=== PATIENT | female | born 1955 | race Two or more races ===

== ENCOUNTER 2025-04-06 15:04 | Emergency (ER) | payer OTHER ==
[~2025-04-06] VITALS: Ht 170.2 cm; Wt 77.1 kg
[2025-04-06] MEDS ORDERED: COZAAR50 MG (16:08)
[2025-04-06] MEDS ORDERED: CLINDAMYCIN PHOSPHATE 150 MG/ML (300mg) IM STA (19:11)
[2025-04-06] MEDS ORDERED: CLINDAMYCIN PHOSPHATE 150 MG/ML (300mg) ONE (19:21)
[2025-04-06 20:01] LABS: BASO % 0.7 % (0.1-1.2); EOS # 0.11 (0.04-0.54); EOS % 2.1 % (0.7-7.0); LYMPH # 1.94 (1.18-3.74); LYMPH % 36.3 % (19.3-53.1); MEAN PLATELET VOLUME 9.50 fl (9.4-12.4); MONO # 0.38 (0.24-0.82); MONO % 7.1 % (4.7-12.5); NEUT # 2.88 (1.56-6.13); NEUT % 53.8 % (34.0-71.1); RED CELL DISTRIBUTION WIDTH 13.0 % (11.6-14.4)
[2025-04-06 20:11] LABS: ERYTHROCYTE SEDIMENTATION RATE 45 mm/hr (0-30)
[2025-04-06 20:20] LABS: ALT/SGPT 24.0 U/L (12-78); AST/SGOT 27.0 U/L (15-37); BILIRUBIN TOTAL 0.56 mg/dL (0.3-1.2); BUN CREA RATIO 10.0 (7.0-25.0); CREATININE SERUM 0.79 mg/dL (0.55-1.02); GFR 71.54; GLOBULINA 4.0 G/DL (2.4-3.5); GLUCOSE FASTING 86.0 mg/dL (65-100); OSMOLALITY SERUM 283.0 MOSM/KG (275-295)
[2025-04-06] MEDS ORDERED: MUPIROCIN1 G1 TOP (22:08)
== END 2025-04-06 22:21 | disposition home or self-care (01) ==
LOC: ER 15:04
PROVIDERS: General Practice
DX: L73.2 Hidradenitis suppurativa (principal); L03.90 Cellulitis, unspecified
CPT/HCPCS: 36415; 74177; 96372; 99284; J3490; Q9965